=== PATIENT | male | born 1975 | race African-American/Black ===

== ENCOUNTER 2017-12-29 19:11 | Emergency (ER) | payer OTHER ==
[~2017-12-29] VITALS: Ht 177.8 cm; Wt 98.4 kg
[2017-12-29 20:38] LABS: HEMATOCRIT 44.5 % (38.0-50.0); HEMOGLOBIN 15.3 G/DL (12.5-16.6); MCH 30.8 PG (29.0-34.0); MCHC 34.4 G/DL (30.0-36.0); MCV 89.5 FL (86-99); PLATELET COUNT 303 K/uL (156-360); RBC DIS.WIDTH-CV 12.2 % (11.8-14.6); RBC DIS.WIDTH-SD 40.2 % (39-53); RED BLOOD COUNT 4.97 M/uL (4.00-5.50); WHITE BLOOD COUNT 14.7 K/uL (4.1-10.2)
[2017-12-29 20:46] LABS: CHLORIDE 101 mEq/L (99-109); POTASSIUM 3.5 mEq/L (3.7-5.4); SODIUM 138 mEq/L (136-147)
[2017-12-29 20:48] LABS: GLUCOSE 97 mg/dL (70-99)
[2017-12-29 20:52] LABS: CREATININE 1.3 mg/dL (0.6-1.3); GFR ESTIMATE (CALCULATED) > 59 mL/min/ (58.99-99999)
[2017-12-29 20:53] LABS: UREA NITROGEN (BUN) 10 mg/dL (9-23)
[2017-12-29 21:14] LABS: APPEARANCE CLEAR ((CLEAR)); BILIRUBIN NEGATIVE; BLOOD SMALL; COLOR YELLOW ((YELLOW)); GLUCOSE (STRIP) NEGATIVE; KETONES 20; LEUKOCYTES NEGATIVE; NITRITE NEGATIVE; PROTEIN (STRIP) 30; SPECIFIC GRAVITY 1.028 (1.000-1.030)
[2017-12-29 21:19] LABS: BACTERIA NONE SEEN /HPF; EPITHELIAL CELLS NONE SEEN /HPF; MUCUS TRACE /LPF; RED BLOOD CELLS 0-5 /HPF (0-5); UCUL ADDED? NO; WHITE BLOOD CELLS 0-5 /HPF (0-5)
[2017-12-29] MEDS ORDERED: CIPRO500 MG PO (22:56)
[2017-12-29] MEDS ORDERED: FLAGYL500 MG PO (22:56)
[2017-12-29 23:06] VITALS: BP 139/99
== END 2017-12-29 23:07 | disposition home or self-care (01) ==
LOC: EME 19:11
PROVIDERS: Nurse Practitioner Family
DX: K57.32 Diverticulitis of large intestine without perforation or abscess without bleeding (principal)
CPT/HCPCS: 74176; 80048; 81003; 85027; 99281; 99284; J1885; J7030

== ENCOUNTER 2018-06-28 05:02 | Emergency (ER) | payer OTHER ==
[~2018-06-28] VITALS: Ht 177.8 cm; Wt 96.3 kg
[~2018-06-28 05:02] MED LIST: CIPRO500 MG PO; FLAGYL500 MG PO
[2018-06-28 05:42] LABS: HEMOGLOBIN 14.8 G/DL (12.5-16.6); MCH 30.6 PG (29.0-34.0); MCHC 34.4 G/DL (30.0-36.0); PLATELET COUNT 292 K/uL (156-360); RBC DIS.WIDTH-CV 12.1 % (11.8-14.6); RBC DIS.WIDTH-SD 39.2 % (39-53); RED BLOOD COUNT 4.83 M/uL (4.00-5.50); WHITE BLOOD COUNT 7.4 K/uL (4.1-10.2)
[2018-06-28 05:56] LABS: ALBUMIN 3.9 g/dL (3.2-4.8); CHLORIDE 107 mEq/L (99-109); POTASSIUM 3.8 mEq/L (3.7-5.4); SODIUM 139 mEq/L (136-147)
[2018-06-28 05:58] LABS: GLUCOSE 104 mg/dL (70-99); TOTAL PROTEIN 7.5 g/dL (6.4-8.3)
[2018-06-28 06:00] LABS: TOTAL BILIRUBIN 0.7 mg/dL (0.0-1.0)
[2018-06-28 06:02] LABS: ALKALINE PHOSPHATASE 67 IU/L (3-129); CREATININE 1.1 mg/dL (0.6-1.3); GFR ESTIMATE (CALCULATED) > 59 mL/min/ (58.99-99999)
[2018-06-28 06:03] LABS: UREA NITROGEN (BUN) 17 mg/dL (9-23)
[2018-06-28 06:04] LABS: AST (GOT) 20 IU/L (2-34)
[2018-06-28 06:05] LABS: ALT (GPT) 21 IU/L (3-49); LIPASE 28 U/L (1.0-51.0)
[2018-06-28] MEDS ORDERED: BENTYL10 MG PO (08:00)
[2018-06-28 08:35] LABS: APPEARANCE CLEAR ((CLEAR)); BILIRUBIN NEGATIVE; BLOOD NEGATIVE; COLOR COLORLESS ((YELLOW)); GLUCOSE (STRIP) NEGATIVE; KETONES NEGATIVE; LEUKOCYTES NEGATIVE; NITRITE NEGATIVE; PROTEIN (STRIP) NEGATIVE; UCUL ADDED? NO; UROBILINOGEN 0.2 MG/DL (0.2-1.0)
[2018-06-28 08:41] VITALS: BP 105/83
== END 2018-06-28 08:42 | disposition home or self-care (01) ==
LOC: EME 05:02
PROVIDERS: Emergency Medicine
DX: R10.32 Left lower quadrant pain (principal); M54.9 Dorsalgia, unspecified; K57.30 Diverticulosis of large intestine without perforation or abscess without bleeding
CPT/HCPCS: 74177; 80053; 81003; 83690; 85027; 99281; 99285; J2405; J7030